=== PATIENT | female | born 1975 | race Hispanic/Latino ===

== ENCOUNTER 2018-12-21 21:01 | Emergency (ER) | payer MEDICAID ==
[2018-12-21] MEDS ORDERED: traMADol HCL 50 MG TAB PO ONE (21:09)
[2018-12-21] MEDS ORDERED: predniSONE 20 MG TAB PO ONE (21:09)
[2018-12-21] MEDS ORDERED: KETOROLAC TROMETHAMINE INJ 30 MG/ML VIAL IM ONE (21:09)
--- NOTE | 2018-12-21 21:13 | ED.PDOC ---
History of Present Illness - General Time Seen by Provider: 12/21/18 21:03 Source: patient Exam Limitations: no limitations - History of Present Illness Initial Comments: the patient's a 43-year-old Hispanicemale presenting to the emergency room secondary to recurrent right knee pain. The patient had an issue with the right knee about 5 months ago. X-rays were done at that tic changes. The patient was working 5 or 6 days ago moving around a lotand the next day she had significant swelling in the knee. There is obvious swelling around the knee. Most of the discomfort is on the anterior lateral aspect. No pain over the patella. She is neurovascularly intact. No ligamentous instability. 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 Timing/Duration: other - 5 days Severity: moderate Improving Factors: immobilization Worsening Factors: movement Associated Symptoms: denies symptoms Allergies/Adverse Reactions: Allergies NO KNOWN ALLERGY Allergy (Verified 09/30/12 12:20) Home Medications: Ambulatory Orders Ergocalciferol [Vitamin D] 50,000 unit PO WKLY 08/29/18 Levothyroxine Sodium [Synthroid] 0.125 mg PO DAILY 08/29/18 Methylprednisolone [Medrol Dose Ronal] 4 mg PO DAILY #1 tab 08/29/18 Tramadol HCl 50 mg PO Q8HR PRN #20 tab 12/21/18 predniSONE [Prednisone] 20 mg PO DAILY #3 tab 12/21/18 Review of Systems - Review of Systems Constitutional: States: no symptoms reported EENTM: States: no symptoms reported Respiratory: States: no symptoms reported Cardiology: States: no symptoms reported Gastrointestinal/Abdominal: States: no symptoms reported Genitourinary: States: no symptoms reported Musculoskeletal: States: see HPI Skin: States: no symptoms reported Neurological: States: no symptoms reported Endocrine: States: no symptoms reported All other Systems: No Change from Baseline Past Medical History (General) - Patient Medical History Hx Stroke: No Hx Congestive Heart Failure: No Hx Thyroid Disease: Yes Hx Diabetes: No - Vaccination History Hx Influenza Vaccination: No - Social History Hx Tobacco Use: No Family Medical History - Family History Mother Family History: Unknown Living Status: Unknown Physical Exam - Physical Exam General Appearance: Alert, Comfortable, No apparent distress Eye Exam: bilateral normal Ears, Nose, Throat: hearing grossly normal Neck: full range of motion Respiratory: no respiratory distress, no accessory muscle use Cardiovascular/Chest: normal peripheral pulses, no edema Peripheral Pulses: dorsalis pedis,right: 2+, dorsalis pedis,left: 2+, posterior tibialis,right: 2+, posterior tibialis,left: 2+ Gastrointestinal/Abdominal: other - bese Rectal Exam: deferred Back Exam: normal inspection Extremity: normal range of motion, no pedal edema, no calf tenderness, normal capillary refill, other - see history of present illness. 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 based on her x-ray of the knee from August, the patient does have some significant osteoarthritis of the knee. There was no acute traumatic inciting event this time. The swelling is obvious. No obvious ligamentous instability. She is neurovascularly intact. She is being dosed with Toradol, tramadol and a dose of prednisone. She'll be written for 3 more days of prednisone in a few more doses of tramadol for as needed use. [id number] Motrin or Aleve can also be used. She will be placed in a knee immobilizer to be used as much as possible for the next couple of weeks to allow the joint to rest. If she continues to have issue with the knee and then she may need to see orthopedics. ER warnings were given for any worsening. [email or web address] [id number] Departure - Departure Clinical Impression: Osteoarthritis of right knee Qualifiers: Osteoarthritis type: unspecified Qualified Code(s): M17.11 - Unilateral primary osteoarthritis, right knee Disposition: Discharge to Home or Self Care Condition: Fair Diet: regular diet Activity: no pushing/pulling with affected limb Referrals: Elan Porter MD [Primary Care Provider] - 1-2 Weeks Prescriptions: Tramadol HCl 50 mg PO Q8HR PRN #20 tab PRN Reason: Moderate Pain predniSONE [Prednisone] 20 mg PO DAILY #3 tab Home Medications: Ambulatory Orders Ergocalciferol [Vitamin D] 50,000 unit PO WKLY 08/29/18 Levothyroxine Sodium [Synthroid] 0.125 mg PO DAILY 08/29/18 Methylprednisolone [Medrol Dose Ronal] 4 mg PO DAILY #1 tab 08/29/18 Tramadol HCl 50 mg PO Q8HR PRN #20 tab 12/21/18 predniSONE [Prednisone] 20 mg PO DAILY #3 tab 12/21/18 Additional Instructions: the patient is a 43-year-old [place] female presenting to the emergency room secondary to a recurrence of acute inflammation to the right knee. based on her x-ray of the knee from August, the patient does have some significant osteoarthritis of the knee. There was no acute traumatic inciting event this time. The swelling is obvious. No obvious ligamentous instability. She is neurovascularly intact. She is being dosed with Toradol, tramadol and a dose of prednisone. She'll be written for 3 more days of prednisone in a few more doses of tramadol for as needed use. [id number] Motrin or Aleve can also be used. She will be placed in a knee immobilizer to be used as much as possible for the next couple of weeks to allow the joint to rest. If she continues to have issue with the knee and then she may need to see orthopedics. ER warnings were given for any worsening.
[2018-12-21 21:43] VITALS: BP 133/83; TEMP 97; O2SAT 99
== END 2018-12-21 21:43 | disposition home or self-care (01) ==
LOC: ER 21:01
DX: M17.11 Unilateral primary osteoarthritis, right knee (principal); E07.9 Disorder of thyroid, unspecified; Z79.899 Other long term (current) drug therapy
CPT/HCPCS: J1885; J7512